=== PATIENT | male | born 1960 | race Caucasian/White ===

== ENCOUNTER 2017-09-14 19:43 | Emergency (ER) | payer BC ==
[~2017-09-14] VITALS: Ht 170.2 cm; Wt 95.0 kg
[~2017-09-14 19:43] MED LIST: OXYC-281
[2017-09-14 19:48] VITALS: Ht 170.2 cm; Wt 95.0 kg
--- NOTE | 2017-09-14 20:37 | ERD ---
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 No med hx HPI 56-year-old male presents here to emergency department for complaints of coughing that started today. Patient has been coughing vigorously, was coughing some greenish phlegm, now noticed some blood tinged phlegm after coughing vigorously. Patient does not have any fever chills. Patient denies any recent travel. Patient does not have any sick contacts. Patient denies any night sweats. Patient denies any chest pain. Patient denies any shortness of breath. Patient denies any wheezing. Patient denies any dyspnea on exertion or dyspnea on lying down. Patient is not taking any medications to help with symptoms. ROS All systems reviewed and are negative except as per history of present illness. Medications Home Meds Reported Medications Oxycodone Hcl-Acetaminophen* (Percocet*) 1 Tab Tablet 09/09/10 Allergies Allergies: Coded Allergies: No Known Allergies (Verified Allergy, Mild, 09/14/17) PMhx/Soc Medical and Surgical Hx: pt denies Medical Hx, pt denies Surgical Hx History of Surgery: No Anesthesia Reaction: No Hx Neurological Disorder: No Hx Respiratory Disorders: No Hx Cardiac Disorders: No Hx Psychiatric Problems: No Hx Miscellaneous Medical Probl: No Hx Alcohol Use: No Hx Substance Use: No Hx Tobacco Use: No Smoking Status: Never smoker FmHx Family History: No coronary disease, No diabetes, No other Physical Exam Vitals Vital Signs Date Time Temp Pulse Resp B/P Pulse Ox O2 Delivery O2 Flow Rate FiO2 09/14/17 19:48 98.2 73 18 124/77 97 Physical Exam GENERAL: The patient is well developed and appropriate for usual state of health, in no apparent distress. CHEST: Clear to auscultation bilaterally. There are no rales, wheezes or rhonchi. HEART: Regular rate and rhythm. No murmurs, clicks, rubs or gallops. No S3 or S4. ABDOMEN: Soft, nontender and nondistended. Good bowel sounds. No rebound or guarding. No gross peritonitis. No gross organomegaly or masses. No Dunne sign or McBurney point tenderness. BACK: No midline or flank tenderness. EXTREMITIES: Equal pulses bilaterally. There is no peripheral clubbing, cyanosis or edema. No focal swelling or erythema. Full range of motion. Grossly neurovascularly intact. NEURO: Alert and oriented. Cranial nerves 2-12 intact. Motor strength in all 4 extremities with 5/5 strength. Sensation grossly intact. Normal speech and gait. SKIN: There is no apparent rash or petechia. The skin is warm and dry. HEMATOLOGIC AND LYMPHATIC: There is no evidence of excessive bruising or lymphedema. No gross cervical, axillary, or inguinal lymphadenopathy. Result Diagram: 09/14/17222409/14/172224 Results 24 hrs Laboratory Tests Test 09/14/17 22:25 White Blood Count 6.410^3/ul Red Blood Count 5.2510^6/ul Hemoglobin 15.2g/dl Hematocrit 45.6% Mean Corpuscular Volume 86.9fl Mean Corpuscular Hemoglobin 29.0pg Mean Corpuscular Hemoglobin Concent 33.3g/dl Red Cell Distribution Width 12.6% Platelet Count 63177^3/UL Mean Platelet Volume 9.2fl Neutrophils % 36.2% Lymphocytes % 50.2% Monocytes % 11.3% Eosinophils % 1.1% Basophils % 0.6% Nucleated Red Blood Cells % 0.0/100WBC Neutrophils # 2.310^3/ul Lymphocytes # 3.210^3/ul Monocytes # 0.710^3/ul Eosinophils # 0.110^3/ul Basophils # 0.010^3/ul Nucleated Red Blood Cells # 0.010^3/ul Sodium Level 142mmol/L Potassium Level 4.0mmol/L Chloride Level 106mmol/L Carbon Dioxide Level 24mmol/L Anion Gap 16 Blood Urea Nitrogen 12mg/dl Creatinine 0.86mg/dl Glucose Level 103mg/dl Calcium Level 9.3mg/dl Current Medications Medications (Trade) Dose Ordered Sig/Finesse Route PRN Reason Start Time Stop Time Status Last Admin Dose Admin Sodium Chloride (NS) 100 ml @ ud STK-MED ONCE .ROUTE 09/14/17 23:38 09/14/17 23:39 DC 09/14/17 23:59 Iohexol (Omnipaque 300mg/ ml) 150 ml STK-MED ONCE .ROUTE 09/14/17 23:40 09/14/17 23:41 DC 09/14/17 23:58 PROCEDURE: CT angiogram of the chest with contrast. CLINICAL INDICATION: Chest pain. TECHNIQUE: CT angiogram of the chest was obtained using a multi-detector high -resolution CT. Contiguous axial images were obtained during the dynamic injection of 100 cc of Omnipaque 300 intravenous contrast. Coronal and sagittal reformatted images were obtained. 3-D reformatted images were also obtained. Images were reviewed on a PACS workstation. One or more of the following dose reduction techniques were used: - Automated exposure control. - Adjustment of the mA and/or kV according to patient size. - Use of iterative reconstruction technique. Exam CTD/vol = 17.51 mGy. Total exam DLP = 666.22 mGy-cm. COMPARISON: None. FINDINGS: The main pulmonary artery followed to the segmental divisions are well opacified. There is no filling defect or evidence of pulmonary embolism. The heart is normal in size. There is no pericardial thickening or effusion. The aorta is of normal course and caliber without evidence of aneurysm or dissection. There is no evidence of chest wall mass. The visualized thyroid is unremarkable. There are no enlarged axillary lymph nodes. There are no enlarged mediastinal or hilar lymph nodes by CT criteria. There is mild bibasilar atelectasis. There is no parenchymal nodule or consolidation. There is no pleural effusion. The central tracheobronchial tree is within normal limits. Limited evaluation of the upper abdomen is unremarkable. IMPRESSION: No evidence of pulmonary embolism or aortic dissection. Mild bibasilar atelectasis. .Kieran Turner MD, MD Date Time Electronically viewed and signed by .Kieran Turner MD, MD on 09/15/2017 00:32 .T/ CC: THALIA LOPEZ NP PROCEDURE: XR Chest. CLINICAL INDICATION: Cough. TECHNIQUE: PA and Lateral views of the chest were obtained. COMPARISON: None. FINDINGS: Cardiomegaly.. Mild elevation of the right hemidiaphragm. Opacification of the left costophrenic angle may represent a small pleural effusion versus atelectasis. The lungs are otherwise clear. Otherwise, no signs of pleural fluid or pneumothorax are seen. The osseous structures and soft tissues are unremarkable. IMPRESSION: Opacification left costophrenic angle may represent small pleural effusion versus atelectasis. RPTAT: [facility] Physician Truman Date Time Electronically viewed and signed by Physician Truman on 09/14/2017 21:44 RS/ CC: THALIA LOPEZ [employer] Procedures/MDM Medical Decision Making: Patient symptoms are most likely consistent with acute bronchitis, which can be from atypical infection for patient with azithromycin. There is low suspicion for Pneumonia at this time since patient s lungs sounds are clear, patient O2 saturation is normal and patient doesnt show any respiratory distress. Patients chest xray showed some abnormality in the chest but CT angiogram was done, does not show this anymore.. There is low suspicion for other cardiopulmonary emergencies at this time such as CHF, Pulmonary Embolism, Pneumothorax, Aortic Aneurysm or any other cardiopulmonary emergencies at this time. There is low suspicion for sepsis. Patient appears well and is hemodynamically stable. Fever is controlled with medicines. Disposition: Home. Condition: Stable Prescriptions: Azithromycin, Guaifenasin with codeine, Zyrtec, albuterol Instructions: Patient is advised to take medications as prescribed. Patient is advised to rest. Patient advised to increase fluid intake, do humidifier at home and if possible, do salt water gargles. Patient is advised that if symptoms are worse, shortness of breath, uncontrolled fever, stridor, vomiting, worst signs and symptoms to return to emergency department immediately. Otherwise, patient is advised to follow up with primary doctor in 5-7 days. Disclaimer: Inadvertent spelling and grammatical errors are likely due to EHR/ dictation software use and do not reflect on the overall quality of patient care. Also, please note that the electronic time recorded on this note does not necessarily reflect the actual time of the patient encounter. Departure Diagnosis: Primary Impression: Acute bronchitis Bronchitis organism: unspecified organism Qualified Code: J20.9 - Acute bronchitis, unspecified organism Condition: Stable Patient Instructions: Bronchitis, Antiobiotic Treatment (Adult) Additional Instructions: Patient is advised to take medications as prescribed. Patient is advised to rest. Patient advised to increase fluid intake, do humidifier at home and if possible, do salt water gargles. Patient is advised that if symptoms are worse, shortness of breath, uncontrolled fever, stridor, vomiting, worst signs and symptoms to return to emergency department immediately. Otherwise, patient is advised to follow up with primary doctor in 5-7 days. THALIA LOPEZ NP Sep 14, 2017 20:37
--- NOTE | 2017-09-14 21:44 | RADRPT ---
PROCEDURE: XR Chest. CLINICAL INDICATION: Cough. TECHNIQUE: PA and Lateral views of the chest were obtained. COMPARISON: None. FINDINGS: Cardiomegaly.. Mild elevation of the right hemidiaphragm. Opacification of the left costophrenic ang le may represent a small pleural effusion versus atelectasis. The lungs are otherwise clear. Otherwi se, no signs of pleural fluid or pneumothorax are seen. The osseous structures and soft tissues are unremarkable. IMPRESSION: Opacification left costophrenic angle may represent small pleural effusion versus atelectasis. RPTAT: [facility] Physician Truman Date Time Electronically viewed and signed by Physician Truman on 09/14/2017 21:44 RS/
[2017-09-14 22:45] LABS: BASOPHILS % 0.6 % (0.0-2.0); EOSINOPHILS # 0.1 10^3/ul (0.0-0.5); EOSINOPHILS % 1.1 % (0.0-7.0); HEMATOCRIT 45.6 % (42.0-52.0); HEMOGLOBIN 15.2 g/dl (14.0-18.0); LYMPHOCYTES # 3.2 10^3/ul (0.8-2.9); LYMPHOCYTES % 50.2 % (15.0-51.0); MEAN CORPUSCULAR HGB CONC 33.3 g/dl (32.0-37.0); MEAN CORPUSCULAR VOLUME 86.9 fl (82.0-101.0); MEAN PLATELET VOLUME 9.2 fl (7.4-10.4); MONOCYTE # 0.7 10^3/ul (0.3-0.9); MONOCYTES % 11.3 % (0.0-11.0); NEUTROPHIL # 2.3 10^3/ul (1.6-7.5); NEUTROPHILS % 36.2 % (39.0-77.0); PLATELET COUNT 381 10^3/UL (140-415); RED BLOOD COUNT 5.25 10^6/ul (4.70-6.10); RED CELL DISTRIBUTION WIDTH 12.6 % (11.5-14.5); WHITE BLOOD COUNT 6.4 10^3/ul (4.8-10.8)
[2017-09-14 23:06] LABS: CALCIUM 9.3 mg/dl (8.4-10.2); CREATININE 0.86 mg/dl (0.61-1.24)
[2017-09-14] MEDS ORDERED: SOD CHLORIDE 0.9% 100 ML ONE (23:38)
[2017-09-14] MEDS ORDERED: IOHEXOL 300MG/ML 150 ML BTL ONE (23:40)
--- NOTE | 2017-09-15 00:33 | RADRPT ---
PROCEDURE: CT angiogram of the chest with contrast. CLINICAL INDICATION: Chest pain. TECHNIQUE: CT angiogram of the chest was obtained using a multi-detector high-resolution CT. Con tiguous axial images were obtained during the dynamic injection of 100 cc of Omnipaque 300 intraveno us contrast. Coronal and sagittal reformatted images were obtained. 3-D reformatted images were al so obtained. Images were reviewed on a PACS workstation. One or more of the following dose reduction techniques were used: - Automated exposure control. - Adjustment of the mA and/or kV according to patient size. - Use of iterative reconstruction technique. Exam CTD/vol = 17.51 mGy. Total exam DLP = 666.22 mGy-cm. COMPARISON: None. FINDINGS: The main pulmonary artery followed to the segmental divisions are well opacified. There is no filli ng defect or evidence of pulmonary embolism. The heart is normal in size. There is no pericardial thickening or effusion. The aorta is of normal course and caliber without evidence of aneurysm or d issection. There is no evidence of chest wall mass. The visualized thyroid is unremarkable. There are no enla rged axillary lymph nodes. There are no enlarged mediastinal or hilar lymph nodes by CT criteria. There is mild bibasilar atelectasis. There is no parenchymal nodule or consolidation. There is no p leural effusion. The central tracheobronchial tree is within normal limits. Limited evaluation of the upper abdomen is unremarkable. IMPRESSION: No evidence of pulmonary embolism or aortic dissection. Mild bibasilar atelectasis. .Kieran Turner MD, MD Date Time Electronically viewed and signed by .Kieran Turner MD, MD on 09/15/2017 00:32 .T/
[2017-09-15] MEDS ORDERED: CETI10CA PO (00:50)
[2017-09-15] MEDS ORDERED: AZIT250T94 PO (00:50)
[2017-09-15] MEDS ORDERED: ALBU8.5H3 INH (00:50)
[2017-09-15] MEDS ORDERED: GUAI473L22 PO (00:50)
== END 2017-09-15 01:00 | disposition home or self-care (01) ==
LOC: FTE 19:43
DX: J20.9 Acute bronchitis, unspecified (principal)
CPT/HCPCS: 71010; 71275; 80048; 85025; 99285; Q9967